=== PATIENT | female | born 1950 | race Caucasian/White ===

== ENCOUNTER 2017-10-10 06:15 | Inpatient (IN) | payer MEDICARE, BC ==
[2017-10-10] MEDS: LACTATED RINGER'S 1,000 ML IV (06:57)
[2017-10-10] MEDS ORDERED: MIDAZOLAM 1 MG/ML 2 ML INJ (07:42)
[2017-10-10] MEDS: CLINDAMYCIN 900 MG/D5W (PMX) 50 ML IVPB ×3 (07:52→21:37)
[2017-10-10] MEDS: POLYMYXIN/BACITRACIN 1L IRRIG IRR (07:52)
[2017-10-10] MEDS: VANCOMYCIN 1.5 GM in SOD CHLORIDE 0.9% 250 ML IVPB (08:00)
[2017-10-10] MEDS ORDERED: BUPIVACAINE 0.75%/DEXT (SPINAL) 2 ML INJ (08:04)
[2017-10-10] MEDS ORDERED: FENTAnyl 50 MCG/ML VIAL ×2 (08:04→12:05)
[2017-10-10] MEDS: TRANEXAMIC ACID 1,000 MG in DEXTROSE 5% 100 ML IV ×2 (08:30→08:57)
[2017-10-10] MEDS ORDERED: ONDANSETRON 4 MG INJ ×2 (08:39→12:10)
[2017-10-10] MEDS ORDERED: PROPOFOL 20 ML (08:39)
[2017-10-10] MEDS ORDERED: LIDOCAINE 2% (SDV) 5 ML INJ (08:39)
[2017-10-10] MEDS ORDERED: FAMOTIDINE 20 MG INJ (08:40)
[2017-10-10] MEDS ORDERED: EPHEDrine SULFATE 50 MG/5 ML SYG (08:47)
[2017-10-10] MEDS ORDERED: POLYMYXIN/BACITRACIN 1L IRRIG (09:16)
[2017-10-10] MEDS ORDERED: ROPIVACAINE 0.2% 20 ML VIAL (10:37)
[2017-10-10] MEDS ORDERED: NALOXONE (0.4 MG/ML) INJ IV (11:30)
[2017-10-10] MEDS ORDERED: SENNA/DOCUSATE NA (8.6MG/50MG) TAB PO (11:30)
[2017-10-10] MEDS ORDERED: NA PHOSPHATE/BIPHOS 133 ML ENEMA PR (11:30)
[2017-10-10] MEDS ORDERED: MAGNESIUM HYDROXIDE 30ML CUP PO (11:30)
[2017-10-10] MEDS ORDERED: BISACODYL 10 MG SUPP PR (11:30)
[2017-10-10] MEDS ORDERED: BETHANECHOL 25 MG TAB PO (11:30)
[2017-10-10] MEDS ORDERED: DIPHENHYDRAMINE 50 MG INJ IV ×2 (11:30→12:00)
[2017-10-10] MEDS ORDERED: oxyCODONE 5 MG TAB PO (11:30)
[2017-10-10] MEDS ORDERED: MEPERIDINE 25 MG INJ (11:36)
[2017-10-10] MEDS ORDERED: PROCHLORPERAZINE 10 MG INJ IV (12:00)
[2017-10-10] MEDS ORDERED: HYDROmorphONE 1 MG/5 ML IV SYRINGE IV (12:00)
[2017-10-10] MEDS ORDERED: ONDANSETRON 4 MG INJ IV (12:00)
[2017-10-10] MEDS ORDERED: hydrALAzine 20 MG INJ IV (12:00)
[2017-10-10] MEDS ORDERED: DOCUSATE SODIUM 100 MG CAP PO (12:11)
[2017-10-10] MEDS: ASPIRIN (EC) 325 MG TAB PO (12:12)
[2017-10-10] MEDS: MEPERIDINE 25 MG INJ IV (12:12)
[2017-10-10] MEDS: DOCUSATE SODIUM 100 MG CAP PO (12:13)
[2017-10-10] MEDS: ONDANSETRON 4 MG INJ IV ×3 (12:13→22:39)
[2017-10-10] MEDS: FENTAnyl 50 MCG/ML VIAL IV (12:14)
[2017-10-10] MEDS: ACETAMINOPHEN 1000MG/100ML IV 100 ML IVPB ×3 (12:17→23:26)
[2017-10-10] MEDS: SOD CHLORIDE 0.9% 1,000 ML IV ×2 (12:17→23:27)
[2017-10-10] MEDS: oxyCODONE 5 MG TAB PO ×5 (12:49→22:38)
[2017-10-10] MEDS ORDERED: GLUCOSE GEL 15 GRAM TUBE BUCCAL (17:00)
[2017-10-10] MEDS ORDERED: GLUCOSE GEL 15 GRAM TUBE PO ×2 (17:00)
[2017-10-10] MEDS ORDERED: DEXTROSE 50% 50 ML SYRINGE IV ×2 (17:00)
[2017-10-10] MEDS ORDERED: GLUCAGON 1 MG INJ IM (17:00)
[2017-10-10] MEDS: INSULIN ASPART [NOVOLOG] 3 ML PEN SC ×2 (17:35→20:32)
[2017-10-10] MEDS: VANCOMYCIN 1 GM (PMX) 250 ML IVPB (17:36)
[2017-10-10] MEDS: BRIMONIDINE 0.2%-TIMOLOL 0.5% 5ML OPH LEFT EYE (20:33)
[2017-10-10] MEDS: EZETIMIBE 10 MG TAB PO (20:34)
[2017-10-10] MEDS: PREGABALIN 75 MG CAP PO (20:34)
[2017-10-10] MEDS: ATORVASTATIN 20 MG TAB PO (20:34)
[2017-10-11] MEDS: ONDANSETRON 4 MG INJ IV (04:33)
[2017-10-11] MEDS: LACTATED RINGER'S 1,000 ML IV (05:01)
[2017-10-11] MEDS: PANTOPRAZOLE (EC) 40 MG TAB PO (05:04)
[2017-10-11] MEDS: ACETAMINOPHEN 1000MG/100ML IV 100 ML IVPB ×3 (05:05→17:30)
[2017-10-11] MEDS: CLINDAMYCIN 900 MG/D5W (PMX) 50 ML IVPB (05:39)
[2017-10-11 05:58] LABS: ADD MAN DIFF? NO
[2017-10-11 05:59] LABS: BASOPHILS % 0.1 % (0.0-2.0); EOSINOPHILS # 0.1 10^3/ul (0.0-0.5); EOSINOPHILS % 1.7 % (0.0-7.0); HEMATOCRIT 31.7 % (37.0-47.0); HEMOGLOBIN 9.4 g/dl (12.0-16.0); LYMPHOCYTES # 1.4 10^3/ul (0.8-2.9); LYMPHOCYTES % 20.5 % (15.0-51.0); MEAN CORPUSCULAR HEMOGLOBIN 26.7 pg (29.0-33.0); MEAN CORPUSCULAR HGB CONC 29.7 g/dl (32.0-37.0); MEAN CORPUSCULAR VOLUME 90.1 fl (82.0-101.0); MEAN PLATELET VOLUME 10.1 fl (7.4-10.4); MONOCYTES % 14.2 % (0.0-11.0); NEUTROPHIL # 4.4 10^3/ul (1.6-7.5); NEUTROPHILS % 63.1 % (39.0-77.0); PLATELET COUNT 191 10^3/UL (140-415); RED BLOOD COUNT 3.52 10^6/ul (4.20-5.40); RED CELL DISTRIBUTION WIDTH 13.2 % (11.5-14.5)
[2017-10-11 06:55] LABS: ANION GAP 8 (8-16); BLOOD UREA NITROGEN 12 mg/dl (7-20); CALCIUM 8.8 mg/dl (8.4-10.2); CARBON DIOXIDE 28 mmol/L (21-31); CHLORIDE 103 mmol/L (97-110); CREATININE 0.92 mg/dl (0.44-1.00); GLUCOSE 93 mg/dl (70-220); POTASSIUM 4.3 mmol/L (3.5-5.1); SODIUM 135 mmol/L (135-144)
[2017-10-11] MEDS: VANCOMYCIN 1 GM (PMX) 250 ML IVPB (06:58)
[2017-10-11] MEDS: INSULIN ASPART [NOVOLOG] 3 ML PEN SC ×3 (07:50→17:53)
[2017-10-11] MEDS: SOLIFENACIN 5 MG TAB PO (08:43)
[2017-10-11] MEDS: PREGABALIN 75 MG CAP PO (08:43)
[2017-10-11] MEDS: FERROUS FUMARATE (SR) TAB PO (08:44)
[2017-10-11] MEDS: ASPIRIN (EC) 325 MG TAB PO (08:45)
[2017-10-11] MEDS: CYANOCOBALAMIN 500 MCG TAB PO (08:45)
[2017-10-11] MEDS: DOCUSATE SODIUM 100 MG CAP PO (08:45)
[2017-10-11] MEDS: DEXAMETHASONE 10 MG/ML 1 ML INJ IV (08:46)
[2017-10-11] MEDS: BRIMONIDINE 0.2%-TIMOLOL 0.5% 5ML OPH LEFT EYE (08:46)
[2017-10-11] MEDS: PREDNISOLONE ACET 1% 5 ML OPH LEFT EYE (08:47)
[2017-10-11] MEDS: oxyCODONE 5 MG TAB PO ×2 (10:19→13:36)
[2017-10-11] MEDS: SOD CHLORIDE 0.9% 1,000 ML IV (12:21)
== END 2017-10-11 19:00 | disposition home health service (06) | DRG 470 ==
LOC: REC 06:15 → MS1 12:50
PROVIDERS: Orthopaedic Surgery Adult Reconstructive Orthopaedic Surgery
PROC: 0SRD0J9 Replacement of Left Knee Joint with Synthetic Substitute, Cemented, Open Approach (ICD-10-PCS; principal; 2017-10-10 07:30)
PROC: XR2H021 Monitoring of Left Knee Joint using Intraoperative Knee Replacement Sensor, Open Approach, New Technology Group 1 (ICD-10-PCS; 2017-10-10 07:30)
DX: M17.12 Unilateral primary osteoarthritis, left knee (principal); E78.5 Hyperlipidemia, unspecified; E11.9 Type 2 diabetes mellitus without complications; E66.9 Obesity, unspecified; Z68.36 Body mass index [BMI] 36.0-36.9, adult; M79.7 Fibromyalgia
CPT/HCPCS: 73560; 80048; 82962; 85025; 87086; 88304; 88311; 97116; 97161; 97166; 97530; 97535

== ENCOUNTER → 2018-05-14 | Outpatient (CLI) | payer MEDICARE, BC | END | disposition home or self-care (01) | LOC: HKI 13:23 | DX: M25.562 Pain in left knee (principal); M25.551 Pain in right hip; Z96.652 Presence of left artificial knee joint | CPT/HCPCS: 73502; 73562-50 ==